=== PATIENT | male | born 1990 | race Caucasian/White ===

== ENCOUNTER → 2016-09-29 | Outpatient (REF) | payer OTHER ==
[2016-09-29 09:46] LABS: PROGRESSIVE MOTILITY (a) 45 % (>=32)
[2016-09-29 09:47] LABS: % NORMAL FORMS 11 % (>=4); IMMOTILITY 48 %; NON PROGRESSIVE MOTILITY (c) 7 %; SPERM# 162.9 M/Ejac (33-46); TOTAL MOTILITY 52 % (>=40); TOTAL PROGRESSIVE SPERM 73.1 M/Ejac.
== END ==
LOC: M LAB REF 08:44
PROVIDERS: ATTEND Student in an Organized Health Care Education/Training Program
DX: N46.8 Other male infertility (principal)

== ENCOUNTER → 2016-10-16 | Outpatient (REF) | payer OTHER ==
[~2016-10-16] MED LIST: ACET30TAB PO; CIPR-249 PO; CYMB1CAP4 PO; FLAG500T PO; MOBI15TA PO
[2016-10-16 12:53] LABS: % NORMAL FORMS 8 % (>=4); IMMOTILITY 50 %; NON PROGRESSIVE MOTILITY (c) 14 %; PROGRESSIVE MOTILITY (a) 36 % (>=32); SPERM# 100.1 M/Ejac (33-46); TOTAL FUNCTIONAL 6.8 M/Ejac.; TOTAL MOTILITY 50 % (>=40)
== END ==
LOC: M SMT 12:00
PROVIDERS: ATTEND Nurse Practitioner Women's Health
DX: N46.9 Male infertility, unspecified (principal)
CPT/HCPCS: 89320; G0463

== ENCOUNTER 2016-11-27 16:31 | Emergency (ER) | payer OTHER ==
[~2016-11-27] VITALS: Ht 182.9 cm; Wt 86.8 kg
[2016-11-27] MEDS ORDERED: CYMB1CAP4 PO (16:51)
[2016-11-27] MEDS ORDERED: MOBI15TA PO (16:51)
[2016-11-27] MEDS ORDERED: KETOROLAC 30 MG/ML VIAL (J1885) IV ONE (18:15)
[2016-11-27] MEDS ORDERED: GASTROGRAFIN SOLUTION 30ML (Q9963) As Ordered ONE (18:24)
[2016-11-27] MEDS ORDERED: GASTROGRAFIN SOLUTION 30ML (Q9963) PO ONE (18:25)
[2016-11-27 18:32] LABS: BASO % 0.7 % (0.0-1.0); EOS # 0.1 K/mm3 (0.0-0.50); EOS % 2.1 % (0.0-3.0); LARGE UNSTAINED CELL # 0.1 K/mm3 (0.0-0.4); LARGE UNSTAINED CELL % 1.5 % (0.0-4.0); LYMPH # 1.6 K/mm3 (1.5-6.5); LYMPH % 24.1 % (24.0-44.0); MEAN CORPUSCULAR HEMOGLOBIN 30.7 pg (27.0-33.0); MEAN CORPUSCULAR HGB CONC 33.3 g/dl (32.0-36.5); MEAN CORPUSCULAR VOLUME 92.2 fl (80.0-96.0); MONO # 0.4 K/mm3 (0.0-0.8); MONO % 6.3 % (0.0-5.0); NEUTROPHILS # 4.1 K/mm3 (1.8-7.7); NEUTROPHILS % 65.4 % (36.0-66.0); PLATELET COUNT, AUTOMATED 244 k/mm3 (150-450); RED CELL DISTRIBUTION WIDTH 13.2 % (11.5-14.5); WHITE BLOOD COUNT 6.2 K/mm3 (4.0-10.0)
[2016-11-27 18:54] LABS: ALBUMIN 4.5 GM/DL (3.2-5.2); ALBUMIN/GLOBULIN RATIO 1.29 (1.00-1.93); ALKALINE PHOSPHATASE 63 U/L (45-117); ALT/SGPT 54 U/L (12-78); ANION GAP 4 MEQ/L (8-16); AST/SGOT 32 U/L (15-37); BILIRUBIN,DIRECT 0.1 MG/DL (0.0-0.2); BILIRUBIN,TOTAL 0.3 MG/DL (0.2-1.0); BLOOD UREA NITROGEN 17 MG/DL (7-18); CALCIUM LEVEL 9.1 MG/DL (8.5-10.1); CARBON DIOXIDE LEVEL 32 MEQ/L (21-32); CHLORIDE LEVEL 106 MEQ/L (98-107); CREATININE FOR GFR 1.07 MG/DL (0.70-1.30); GLOMERULAR FILTRATION RATE > 60.0 (>60); GLUCOSE, FASTING 80 MG/DL (70-105); POTASSIUM SERUM 4.2 MEQ/L (3.5-5.1); SODIUM LEVEL 142 MEQ/L (136-145)
[2016-11-27] MEDS ORDERED: GASTROGRAFIN SOLUTION 30ML PO ONE (19:05)
--- NOTE | 2016-11-27 22:30 | REPUSA ---
CLINICAL HISTORY: LLQ pain. History of hernia repair. TECHNIQUE: Multiple axial, coronal, sagittal CT images were obtained through the abdomen and pelvis without administration of IV contrast material. The patient received oral contrast material only. COMMENTS: The liver is of uniform attenuation without mass or defect. There is no intra or extrahepatic biliar y ductal dilatation. The spleen is mildly enlarged measuring 13.5 cm. The gallbladder is contracted . The pancreas is of normal contour and attenuation characteristics. There is no evidence of adrena l mass. Small hiatal hernia is seen. The kidneys are normal in size, shape and configuration. No renal or ureteral calculi are identified . There is no hydroureter or hydronephrosis. There is no evidence for appendicitis. There is circumferential wall thickening noted involving the duodenum and jejunum compatible with enteritis. There is also evidence of mild wall thickening involv ing terminal ileum as well as cecum and ascending colon. Consider consultation with GI service. No evidence for small or large bowel obstruction. There is no evidence of abdominal ascites or lymphade nopathy. There is no evidence of intrinsic or extrinsic bladder mass. There is no pelvic ascites or lymphaden opathy. The prostate gland is unremarkable with suggestion of prior left inguinal hernia repair. Images of the lung bases show no evidence of pleural or parenchymal mass. There are no pleural effus ions. The bony structures are free of lytic or blastic lesions. IMPRESSION: 1. Evidence of enteritis and colitis as discussed above. Consider consultation with GI service with colonoscopy and upper endoscopy. 2. Splenomegaly. 3. Additional findings as above.
[2016-11-27] MEDS ORDERED: CIPROFLOXACIN 500 MG TAB PO ONE (22:45)
[2016-11-27] MEDS ORDERED: metroNIDAZOLE (FLAGYL) 500 MG TAB PO ONE (22:45)
[2016-11-27] MEDS ORDERED: FLAG500T PO (22:50)
[2016-11-27] MEDS ORDERED: CIPR-249 PO (22:50)
[2016-11-27] MEDS ORDERED: ACET30TAB PO (22:50)
[2016-11-27 22:59] VITALS: BP 161/89
--- NOTE | 2016-11-28 10:38 | ED PDOC ---
Post-Departure Follow-Up radiology report faxed to [facility] Zoila Diaz MD Nov 28, 2016 10:38
== END 2016-11-27 23:00 | disposition home or self-care (01) ==
LOC: M ED 16:31
DX: K52.9 Noninfective gastroenteritis and colitis, unspecified (principal); G62.9 Polyneuropathy, unspecified; Z98.890 Other specified postprocedural states; Z79.899 Other long term (current) drug therapy
CPT/HCPCS: 74176; 80048; 80076; 81001; 83605; 83690; 85025; 86140; 96374; 99283; J1885; Q9963

== ENCOUNTER → 2017-10-13 | Outpatient (CLI) | payer OTHER ==
[~2017-10-13] MED LIST changes: -ACET30TAB PO; -CIPR-249 PO; -CYMB1CAP4 PO; -FLAG500T PO; +GASTROGRAFIN SOLUTION 30ML (Q9963) As Ordered; +ISOVUE-370 76% 100ML VIAL (Q9967) As Ordered; -MOBI15TA PO
== END ==
LOC: M RAD 12:58
DX: R10.30 Lower abdominal pain, unspecified (principal)
CPT/HCPCS: Q9963

== ENCOUNTER → 2018-02-22 | Outpatient (CLI) | payer OTHER ==
[~2018-02-22] MED LIST changes: -GASTROGRAFIN SOLUTION 30ML (Q9963) As Ordered; -ISOVUE-370 76% 100ML VIAL (Q9967) As Ordered; +PROHANCE 279.3MG/ML 15ML VIAL (A9576) As Ordered; +PROHANCE 279.3MG/ML 5ML VIAL (A9576) As Ordered
== END ==
LOC: M RAD 14:28
DX: M79.2 Neuralgia and neuritis, unspecified (principal)

== ENCOUNTER → 2018-03-02 | Outpatient (CLI) | payer OTHER | LOC: M RAD 15:52 | DX: M79.2 Neuralgia and neuritis, unspecified (principal); M51.24 Other intervertebral disc displacement, thoracic region | CPT/HCPCS: A9576 ==